=== PATIENT | female | born 1995 | race Caucasian/White ===

== ENCOUNTER 2018-10-10 21:38 | Inpatient (IN) | payer OTHER ==
[~2018-10-10] VITALS: Ht 154.9 cm; Wt 64.0 kg
[2018-10-10 21:44] VITALS: Ht 154.9 cm; Wt 64.0 kg
[2018-10-10 22:20] LABS: BASOPHIL % 0.5 % (0-2); PLATELET COUNT 275 x10^3mcL (130-400)
[2018-10-10 22:40] LABS: microscopic required? NO
[2018-10-10 22:40] LABS: CALCIUM 8.7 mg/dL (8.5-10.1); CARBON DIOXIDE 23.3 mmol/L (21-32); CHLORIDE SERUM 108 mmol/L (98-107); CREATININE SERUM 0.7 mg/dL (0.6-1.0); GFR1 > 60 mL/min; GLUCOSE SERUM 81 mg/dL (74-106); POTASSIUM SERUM 3.3 mmol/L (3.5-5.1); SODIUM SERUM 145 mmol/L (136-145)
[2018-10-10 22:47] LABS: ALBUMIN 4.1 g/dL (3.4-5.0); ALKALINE PHOSPHATASE 67 U/L (46-116); ALT/SGPT 29 U/L (14-59); AST/SGOT 23 U/L (15-37); BILIRUBIN TOTAL 0.2 mg/dL (0.20-1.00); TOTAL PROTEIN, SERUM 7.8 g/dL (6.4-8.2)
[2018-10-10 23:00] LABS: UA SPECIFIC GRAVITY <=1.005 (1.005-1.035); urine erythrocyte NEGATIVE (NEGATIVE)
[2018-10-10 23:06] LABS: AMPHETAMINE QUAL UR POSITIVE (See below)
[2018-10-11 21:45] VITALS: BP 122/69
[2018-10-12 05:16] LABS: BASOPHIL % 0.5 % (0-2); PLATELET COUNT 227 x10^3mcL (130-400); RED CELL DISTRIBUTION WIDTH 14.3 % (11.5-14.5)
[2018-10-12 05:27] LABS: CALCIUM 8.3 mg/dL (8.5-10.1); CARBON DIOXIDE 27.3 mmol/L (21-32); CHLORIDE SERUM 104 mmol/L (98-107); CREATININE SERUM 0.5 mg/dL (0.6-1.0); GFR1 > 60 mL/min; GLUCOSE SERUM 87 mg/dL (74-106); POTASSIUM SERUM 3.6 mmol/L (3.5-5.1); SODIUM SERUM 139 mmol/L (136-145)
[2018-10-12 05:41] VITALS: BP 107/69
[2018-10-12 08:34] VITALS: BP 102/66
[2018-10-12 18:25] VITALS: BP 116/75
[2018-10-12 20:16] VITALS: BP 99/56
[2018-10-13 05:32] VITALS: BP 105/67
[2018-10-13 06:24] LABS: BASOPHIL % 0.6 % (0-2); PLATELET COUNT 218 x10^3mcL (130-400); RED CELL DISTRIBUTION WIDTH 13.9 % (11.5-14.5)
[2018-10-13 06:35] LABS: CALCIUM 8.7 mg/dL (8.5-10.1); CARBON DIOXIDE 27.5 mmol/L (21-32); CHLORIDE SERUM 104 mmol/L (98-107); CREATININE SERUM 0.5 mg/dL (0.6-1.0); GFR1 > 60 mL/min; GLUCOSE SERUM 86 mg/dL (74-106); MAGNESIUM 1.9 mg/dL (1.8-2.4); PHOSPHOROUS 4.2 mg/dL (2.5-4.9); POTASSIUM SERUM 3.8 mmol/L (3.5-5.1); SODIUM SERUM 139 mmol/L (136-145)
[2018-10-13 09:11] VITALS: BP 106/69
[2018-10-13 15:51] VITALS: BP 119/77
[2018-10-13 20:12] VITALS: BP 96/61
[2018-10-14 05:30] VITALS: BP 98/63
[2018-10-14 06:21] LABS: BASOPHIL % 0.7 % (0-2); PLATELET COUNT 235 x10^3mcL (130-400); RED CELL DISTRIBUTION WIDTH 13.7 % (11.5-14.5)
[2018-10-14 07:23] LABS: CALCIUM 8.6 mg/dL (8.5-10.1); CHLORIDE SERUM 103 mmol/L (98-107); CREATININE SERUM 0.6 mg/dL (0.6-1.0); GFR1 > 60 mL/min; GLUCOSE SERUM 82 mg/dL (74-106); MAGNESIUM 2.1 mg/dL (1.8-2.4); PHOSPHOROUS 4.2 mg/dL (2.5-4.9); POTASSIUM SERUM 3.4 mmol/L (3.5-5.1); SODIUM SERUM 137 mmol/L (136-145)
[2018-10-14 08:35] VITALS: BP 91/55
[2018-10-14] MEDS ORDERED: LEXAPRO10 MG PO (12:23)
[2018-10-14 12:43] VITALS: BP 96/63
[2018-10-14 13:11] VITALS: BP 96/63
== END 2018-10-14 15:40 | DRG 816 ==
LOC: ED 21:38 → DU 10-11 19:26 → MU 10-11 19:26 → DU 10-13 08:07
PROVIDERS: Emergency Medicine; Family Medicine
DX: T54.92XA Toxic effect of unspecified corrosive substance, intentional self-harm, initial encounter (principal); N17.0 Acute kidney failure with tubular necrosis; R45.851 Suicidal ideations; E87.6 Hypokalemia; F10.229 Alcohol dependence with intoxication, unspecified; Y90.0 Blood alcohol level of less than 20 mg/100 ml; F15.10 Other stimulant abuse, uncomplicated; F32.9 Major depressive disorder, single episode, unspecified; E87.8 Other disorders of electrolyte and fluid balance, not elsewhere classified; Y92.018 Other place in single-family (private) house as the place of occurrence of the external cause; Z91.410 Personal history of adult physical and sexual abuse; Z23 Encounter for immunization
CPT/HCPCS: 82962; 90658; G0480; J2060; J7030

== ENCOUNTER 2019-12-03 02:23 | Emergency (ER) | payer OTHER ==
[~2019-12-03] VITALS: Ht 154.9 cm; Wt 62.7 kg
[~2019-12-03 02:23] MED LIST: LEXAPRO10 MG PO
[2019-12-03 02:32] VITALS: Ht 154.9 cm; Wt 62.7 kg
[2019-12-03 04:55] VITALS: BP 116/77
== END 2019-12-03 04:52 | disposition home or self-care (01) ==
LOC: ED 02:23
DX: S06.0X0A Concussion without loss of consciousness, initial encounter (principal); S50.01XA Contusion of right elbow, initial encounter; S80.01XA Contusion of right knee, initial encounter; V09.9XXA Pedestrian injured in unspecified transport accident, initial encounter; Y93.89 Activity, other specified; Y92.89 Other specified places as the place of occurrence of the external cause; Y99.8 Other external cause status

== ENCOUNTER 2020-01-16 22:26 | Emergency (ER) | payer OTHER ==
[~2020-01-16] VITALS: Ht 154.9 cm; Wt 61.9 kg
[2020-01-16 22:31] VITALS: BP 113/90; Ht 154.9 cm; Wt 61.9 kg
== END 2020-01-16 22:55 | disposition home or self-care (01) ==
LOC: ED 22:26
DX: J06.9 Acute upper respiratory infection, unspecified (principal)